=== PATIENT | female | born 1965 | race American Indian/Alaskan Native ===

== ENCOUNTER 2018-03-20 09:39 | Day surgery (SDC) | payer OTHER ==
[~2018-03-20 09:39] MED LIST: NACL 0.9% 1000 ML 1,000 ML IV SCH
[2018-03-20] MEDS ORDERED: DIPRIVAN 10 MG/ML IV ONE ×2 (11:55)
--- NOTE | 2018-03-20 11:55 | Anesthesia Consultation ---
Anesthesia Consult and Med Hx Date of service: 03/20/18 - Airway Anesthetic Teeth Evaluation: Good ROM Head & Neck: Adequate Mental/Hyoid Distance: Adequate Mallampati Class: Class II Intubation Access Assessment: Probably Good - Pulmonary Exam CTA: Yes - Cardiac Exam Cardiac Exam: RRR - Pre-Operative Health Status ASA Pre-Surgery Classification: ASA2 Proposed Anesthetic Plan: MAC - Cardiovascular System Hx Hypertension: Yes - Hematic Hx Anemia: Yes
--- NOTE | 2018-03-20 11:56 | Anesthesia Day of Surgery ---
Anesthesia Day of Surgery - Day of Surgery Patient Examined: Yes Patient H&P Reviewed: Yes Patient is NPO: Yes
--- NOTE | 2018-03-20 12:21 | Short Stay Summary ---
Short Stay Documentation Date of service: 03/20/18 Narrative H&P: The patient presents for surveillance colonoscopy for history of polyps. Last study 7 years ago. - History Past Medical History: hypertension Past Surgical History: No surgical history Social history: no significant social history, no smoking, no alcohol abuse - Allergies and Medications Current Medications: Allergies amoxicillin Allergy (Verified 03/19/18 15:27) Rash Home Medications Medication Instructions Recorded Confirmed Last Taken Type Iron 65 mcg DAILY 03/19/18 03/20/18 03/17/18 History Losartan 100 mg DAILY 03/19/18 03/19/18 Unknown History Uroxatral 10 mg DAILY 03/19/18 03/19/18 Unknown History amLODIPine 5 mg DAILY 03/19/18 03/20/18 03/20/18 History Active Medications Sodium Chloride (Nacl 0.9% 1000 Ml) 1,000 mls @ 50 mls/hr IV DIRECT SANDRA Last Admin: 03/20/18 10:31 Dose: 50 mls/hr - Physical exam General appearance: no acute distress, well-nourished Integumentary: no rash, no growths, no abnormal pigmentation HEENT: Atraumatic, PERRLA, EOMI, Mucous membr. moist/pink Lungs: Clear to auscultation, Normal air movement Breasts: deferred Heart: Regular rate, Normal S1, Normal S2, No murmurs Gastrointestinal: normoactive bowel sounds, no tenderness, no distended, no masses, no guarding, no organomegaly Female Genitourinary: deferred Rectal Exam: normal exam-external/orifice, normal rectal tone, no mass Extremities: no ischemia, pulses intact, pulses symmetrical, No edema, normal temperature, normal color Neurological: Normal gait, Normal speech, Strength at 5/5 X4 ext, Normal tone, Sensation intact, Cranial nerves 3-12 NL - Brief post op/procedure progress note Date of procedure: 03/20/18 Findings: see dictated report. Estimated blood loss: none Pathology: none Condition: stable - Disposition Condition at discharge: Good - Discharge Diagnoses (1) History of colon polyps Status: Acute Short Stay Discharge Plan Activity: other (no driving for 24 hours) Weight Bearing Status: Full Weight Bearing Diet: regular Follow up with: EVELIA ROB MD [Primary Care Provider] - 7 Days
--- NOTE | 2018-03-20 12:22 | Operative Report ---
Operative Report Operative Report: Date of procedure: 03/20/2018 Preprocedure diagnosis: Personal history of colon polyps. Last study 7 years ago. Post procedure diagnosis: Normal study Procedure: Colonoscopy to the cecum Endoscopist: Dr. Gooden Anesthesia: Monitored anesthesia care per anesthesia department Estimated blood loss: 0 Medications: Monitored anesthesia care. See separate report by anesthesia for details. After careful discussion of the nature and purpose of the procedure as well as details of the technique risks benefits and alternatives the patient gave consent. Please see recent history and physical from the office. The patient was placed in the left lateral decubitus position and medicated per anesthesia. A rectal exam was performed sphincter tone was normal there were no masses palpable. The [employer] 570 scope was passed transanally and advanced under continuous direct vision without difficulty to the cecum. The colon was well prepared. The cecum was normal. The ascending colon was normal and on forward and retroflexed views. The transverse colon, descending colon, and sigmoid colon were normal. The rectum was normal on forward and retroflexed views. The procedure was well-tolerated overall and the patient was observed in recovery. Conclusions: Normal colonoscopy to the cecum. Plan: Repeat colonoscopy in 5 years Signed electronically: Franky Gooden M.D.
[2018-03-20 12:43] VITALS: BP 103/56
== END 2018-03-20 09:40 | disposition home or self-care (01) ==
LOC: GIO 09:39
PROVIDERS: ATTEND Internal Medicine Gastroenterology
DX: Z12.11 Encounter for screening for malignant neoplasm of colon (principal); I10 Essential (primary) hypertension; Z88.1 Allergy status to other antibiotic agents; Z79.899 Other long term (current) drug therapy; Z86.010 Personal history of colon polyps
CPT/HCPCS: 45378; J2704; J7030